=== PATIENT | male | born 1985 | race African-American/Black ===

== ENCOUNTER 2021-09-06 11:24 | Emergency (ER) | payer SELFPAY ==
[~2021-09-06] VITALS: Ht 167.6 cm; Wt 62.6 kg
--- NOTE | 2021-09-06 11:30 | NUR ---
TO ER BED 10, BIB SELF C/O VOMITING STARTED LAST NIGHT, AAOX3, BREATHING EVEN AND NON LABORED, CONNECTED TO MONITOR, SEEN BY
[2021-09-06] MEDS ORDERED: ONDANSETRON HCL/PF 4 MG/2 ML VIAL ONE (11:39)
[2021-09-06] MEDS ORDERED: HYDROMORPHONE 1 MG/1 ML DISP.SYRIN ONE (11:40)
--- NOTE | 2021-09-06 11:40 | NUR ---
THE PATIENT IS TAKEN TO CT VIA [facility]
--- NOTE | 2021-09-06 11:51 | NUR ---
THE PATIENT IS BACK FROM CT VIA [facility]
[2021-09-06] MEDS ORDERED: IV NS 0.9% 1,000 ML BAG IV ONE (12:00)
[2021-09-06] MEDS ORDERED: HYDROMORPHONE INJ 2 MG/ML DISP.SYRIN IV ONE (12:00)
[2021-09-06] MEDS ORDERED: ONDANSETRON HCL/PF 4 MG/2 ML VIAL IVP ONE (12:00)
[2021-09-06 13:03] LABS: BASOPHILS % (AUTO) 0.4 % (0.0-2.0); EOSINOPHILS % (AUTO) 0.4 % (0.0-6.0); HEMATOCRIT 40 % (39-51); HEMOGLOBIN 13.2 g/dL (13.5-17.5); LYMPHOCYTES # (AUTO) 0.9 K/uL (0.8-4.8); LYMPHOCYTES % (AUTO) 11.2 % (20.0-44.0); MEAN CORPUSCULAR HGB CONC 33 g/dl (31.0-36.0); MEAN CORPUSCULAR VOLUME 93 fL (80-96); MONOCYTES # (AUTO) 0.2 K/uL (0.1-1.30); MONOCYTES % (AUTO) 2.5 % (2.0-12.0); NEUTROPHILS # (AUTO) 6.8 K/uL (1.8-8.9); NEUTROPHILS % (AUTO) 85.5 % (43.0-81.0); PLATELET COUNT (AUTO) 257 K/uL (150-450); RED BLOOD CELL COUNT(AUTO) 4.27 MIL/uL (4.5-6.0); WHITE BLOOD COUNT (AUTO) 7.9 K/uL (4.3-11.0)
[2021-09-06 13:14] LABS: BILIRUBIN,DIRECT 0.1 mg/dL (0.0-0.2); BILIRUBIN,TOTAL 0.4 mg/dL (0.2-1.0); CALCIUM, SERUM 9.4 mg/dL (8.5-10.1); CREATININE 1.3 mg/dL (0.6-1.3); POTASSIUM 4.2 mmol/L (3.5-5.1); TOTAL PROTEIN, SERUM 7.2 g/dL (6.4-8.2)
[2021-09-06] MEDS ORDERED: CEPH500C2 PO (13:48)
[2021-09-06] MEDS ORDERED: TAMS-12 PO (13:48)
[2021-09-06] MEDS ORDERED: OXYC-133 PO (13:48)
[2021-09-06] MEDS ORDERED: CIPR500T5 PO (13:48)
[2021-09-06] MEDS ORDERED: CEFTRIAXONE 500 MG VIAL ONE (14:04)
[2021-09-06] MEDS ORDERED: LIDOCAINE /MPF 1% VIAL 5 ML VIAL ONE (14:04)
--- NOTE | 2021-09-06 14:10 | NUR ---
IV pulled out by patient. Checked catheter, Catheter intact and site benign. Pressure and 4x4 applied to site. No bleeding noted. Patient discharged to home in stable condition. Written and verbal after care instructions given. Patient verbalizes understanding of instruction.
[2021-09-06 14:11] VITALS: BP 123/80
[2021-09-06] MEDS ORDERED: CEFTRIAXONE 500 MG VIAL IM ONE (14:30)
== END 2021-09-06 14:12 | disposition home or self-care (01) ==
LOC: ER 11:26
DX: N20.0 Calculus of kidney (principal); R11.10 Vomiting, unspecified; Z60.2 Problems related to living alone
CPT/HCPCS: 36415; 74176; 80048; 80076; 83690; 85025; 96361; 96372; 96374; 96375; 99285; J0696; J1170; J2405; J3490; J7030